=== PATIENT | male | born 1970 | race African-American/Black ===

== ENCOUNTER → 2018-12-09 | Day surgery (SDC) | payer OTHER ==
--- NOTE | 2018-12-13 15:35 | PATH ---
Surgical Pathology Report Patient Name: SIMBA THOMPSON Med. Rec. #: [id number] /Age/Gender: 1970 (Age: 48) / M Account: [id number] Location: [facility] Taken: 12/09/2018 Received: 12/12/2018 Reported: 12/13/2018 Physicians: Danilo Bermudez M.D. Specimen(s) Received BREAST, RIGHT, 1:00, 5 CM FN, CORE BIOPSY Clinical History Ultrasound findings: Suspicious Final Diagnosis BREAST, RIGHT, 1:00, 5 CM FN, VACUUM ASSISTED ULTRASOUND GUIDED CORE BIOPSY: FIBROADIPOSE TISSUE WITH ACUTE AND CHRONIC INFLAMMATION, AND HISTIOCYTIC INFILTRATE SUGGESTIVE OF CYST RUPTURE AND ASSOCIATED REACTIVE CHANGES. Electronically Signed Jessica Rocha M.D. Gross Description Received in formalin labeled "right breast 1:00, 5 cmfn," are 4 hewitt-yellow, cylindrical portions of fibroadipose tissue ranging from 1.0-1.3 cm in length and averaging 0.1 cm in diameter. The specimens are submitted in toto in one cassette. Time to formalin fixation: 2 minutes Total formalin fixation time: Approximately 76 hours. /12/12/201812/12/2018
== END | disposition home or self-care (01) ==
LOC: FRADUS-SUR 13:38
PROVIDERS: ATTEND Student in an Organized Health Care Education/Training Program
PROC: 0HBT3ZX Excision of Right Breast, Percutaneous Approach, Diagnostic (ICD-10-PCS; principal; 2018-12-09)
DX: N63.12 Unspecified lump in the right breast, upper inner quadrant (principal); N64.89 Other specified disorders of breast
CPT/HCPCS: 19083; 87899; 88305-TC; A4648